=== PATIENT | male | born 1995 | race Caucasian/White ===

== ENCOUNTER 2017-01-13 09:44 | Emergency (ER) | payer OTHER ==
[2017-01-13 09:55] VITALS: TEMP 97.9
--- NOTE | 2017-01-13 10:17 | EDPHY ---
H & P Stated Complaint: right pectoral pain, nausea 2 days, hx chest pain Time Seen by Provider: 01/13/17 10:05 HPI/ROS: CHIEF COMPLAINT: Worsening chronic chest pain HISTORY OF PRESENT ILLNESS: The patient has a 3 month history of right-sided pectoral pain. The patient has seen a few providers for evaluation of this condition. He has been diagnosed with costochondritis. He reportedly has been on an anti-inflammatory for the past month. The patient states over the past several days his symptoms have worsened. He describes a burning sensation underneath his right pectoral area which is worsened with hyperinflation and abduction of his right humerus. The patient denies any asymmetric calf pain or swelling. He denies any complaints of abdominal pain, vomiting diarrhea. The patient denies any history of fever cough or congestion. The patient denies additional acute complaints. REVIEW OF SYSTEMS: A comprehensive 10 point review of systems is otherwise negative aside from elements mentioned in the history of present illness. Source: Patient Exam Limitations: No limitations - Personal History Current Tetanus/Diphtheria Vaccine: Unsure Current Tetanus Diphtheria and Acellular Pertussis (TDAP): Unsure - Medical/Surgical History Hx Asthma: No Hx Chronic Respiratory Disease: No Hx Diabetes: No Hx Cardiac Disease: No Hx Renal Disease: No Hx Cirrhosis: No Hx Alcoholism: No Hx HIV/AIDS: No Hx Splenectomy or Spleen Trauma: No Other PMH: sinus infections, axiety and panic disorder - Social History Smoking Status: Never smoked - Physical Exam Exam: General Appearance: Alert, no distress Eyes: Pupils equal and round no pallor or injection ENT, Mouth: Mucous membranes moist Respiratory: There are no retractions, lungs are clear to auscultation Cardiovascular: Regular rate and rhythm Gastrointestinal: Abdomen is soft and nontender, no masses, bowel sounds normal Neurological: A&O, normal motor function, normal sensory exam, normal cranial nerves Skin: Warm and dry, no rashes, specifically no evidence of zoster Musculoskeletal: Neck is supple nontender Extremities: symmetrical, full range of motion Constitutional: Initial Vital Signs Temperature (C) 36.6 C 01/13/17 09:52 Heart Rate 79 01/13/17 09:52 Respiratory Rate 18 01/13/17 09:52 Blood Pressure 138/73 H 01/13/17 09:52 O2 Sat (%) 100 01/13/17 09:52 O2 Delivery Mode Room Air Allergies/Adverse Reactions: No Known Allergies Allergy (Verified 01/13/17 09:51) Home Medications: Medication Instructions Recorded NK [No Known Home Meds] 01/13/17 Medical Decision Making - Diagnostics EKG Interpretation: EKG: Complete interpretation has been separately recorded in the [email or web address] archive. Summary impression: Sinus, rate 74, no ST segment elevation or depression Imaging Results: Imaging Impressions Chest X-Ray 01/13/17 10:18 Impression: Normal chest. Chest/Thorax CTA 01/13/17 11:41 Impression: Negative CT examination of the chest for acute pulmonary thromboembolic disease. Results called to Dr. Angus Anderson at 12:30 PM at the time of the interpretation. ED Course/Re-evaluation: The patient presents to the ED with an acute exacerbation of some chronic right- sided chest pain. Patient is noted to be hemodynamically stable. He is in no acute distress. His EKG demonstrates no evidence of ischemia or arrhythmia. The patient's chest x-ray demonstrates no evidence of a pneumothorax. The patient's D-dimer is negative which I feel adequately excludes pulmonary embolism. The patient has been struggling with symptoms of intermittent right- sided chest pain for the past month. The patient's chest x-ray demonstrates no evidence of acute disease. The patient's D-dimer was negative. Given the ongoing unexplained symptoms, a CT scan with contrast was performed which demonstrates no evidence of dissection, a thoracic mass, occult pneumothorax or other acute explanation for chest pain. At this point time while the etiology of his symptoms are uncertain I feel we have excluded serious causes of chest pain. The patient will be encouraged to continue to work with his primary care provider for management of his symptoms. At this point time I am recommending the patient continue nonsteroidal anti- inflammatories only. The patient was re-evaluated by myself at 12:30 p.m.. His vital signs remained stable. He is in no acute distress. The patient will be discharged with customary aftercare instructions and return precautions. Differential Diagnosis: Differential diagnosis considered includes pneumothorax, rib fracture, pericarditis, myocarditis, pneumonia, pulmonary embolism - Data Points Laboratory Results: Laboratory Results 01/13/17 10:15 01/13/17 10:15 01/13/17 01/13/17 01/13/17 10:15 10:15 10:15 WBC 5.48 10^3/uL 10^3/uL (3.80-9.50) RBC 5.77 10^6/uL 10^6/uL (4.40-6.38) Hgb 16.9 g/dL g/dL (13.7-17.5) Hct 47.3 % % (40.0-51.0) MCV 82.0 fL fL (81.5-99.8) MCH 29.3 pg pg (27.9-34.1) MCHC 35.7 g/dL g/dL (32.4-36.7) RDW 12.8 % % (11.5-15.2) Plt Count 173 10^3/uL 10^3/uL (150-400) MPV 10.7 fL fL (8.7-11.7) Neut % (Auto) 51.9 % % (39.3-74.2) Lymph % (Auto) 36.3 % % (15.0-45.0) [place] % (Auto) 9.5 % % (4.5-13.0) Eos % (Auto) 1.6 % % (0.6-7.6) Baso % (Auto) 0.5 % % (0.3-1.7) Nucleat RBC Rel Count 0.0 % % (0.0-0.2) Absolute Neuts (auto) 2.84 10^3/uL 10^3/uL (1.70-6.50) Absolute Lymphs (auto) 1.99 10^3/uL 10^3/uL (1.00-3.00) Absolute Monos (auto) 0.52 10^3/uL 10^3/uL (0.30-0.80) Absolute Eos (auto) 0.09 10^3/uL 10^3/uL (0.03-0.40) Absolute Basos (auto) 0.03 10^3/uL 10^3/uL (0.02-0.10) Absolute Nucleated RBC 0.00 10^3/uL 10^3/uL (0-0.01) Immature Gran % 0.2 % % (0.0-1.1) Immature Gran # 0.01 10^3/uL 10^3/uL (0.00-0.10) D-Dimer < 0.27 ug/mLFEU ug/mLFEU (0.00-0.50) Sodium 142 mEq/L mEq/L (134-144) Potassium 4.1 mEq/L mEq/L (3.5-5.2) Chloride 102 mEq/L mEq/L (97-110) Carbon Dioxide 24 mEq/l mEq/l (22-31) Anion Gap 16 mEq/L mEq/L (8-16) BUN 17 mg/dL mg/dL (7-23) Creatinine 1.0 mg/dL mg/dL (0.7-1.3) Estimated GFR > 60 Glucose 81 mg/dL mg/dL (70-100) Calcium 10.1 mg/dL mg/dL (8.5-10.4) Troponin I < 0.012 ng/mL ng/mL (0.000-0.034) Departure - Departure Disposition: [facility] Clinical Impression: Chest pain Condition: Good Instructions: Chest Pain (ED) Additional Instructions: 1. I recommend continuing anti-inflammatories as needed for chest pain. 2. The workup in the emergency department today is unrevealing for evidence of a blood clot, mass, cardiac condition or infection that would be an explanation for your pain. 3. Please continue to work with your primary care provider as needed. Referrals: Francis Mercedes MD [Primary Care Provider] - As per Instructions
--- NOTE | 2017-01-13 10:18 | CPEKG ---
Heart Rate: 74 RR Interval: 811 P-R Interval: 144 QRSD Interval: 96 QT Interval: 372 QTC Interval: 413 P [place]: 53 QRS [place]: 80 T Wave [place]: 43 EKG Severity - OTHERWISE NORMAL ECG - EKG Impression: SINUS ARRHYTHMIA, RATE 60-87 Electronically Signed By: Zack Jimenez 13-Jan-2017 10:32:18
--- NOTE | 2017-01-13 10:18 | CPEKG ---
Heart Rate: 74 RR Interval: 811 P-R Interval: 144 QRSD Interval: 96 QT Interval: 372 QTC Interval: 413 P [place]: 53 QRS [place]: 80 T Wave [place]: 43 EKG Severity - OTHERWISE NORMAL ECG - EKG Impression: SINUS ARRHYTHMIA, RATE 60-87 Electronically Signed By: Zack Jimenez 13-Jan-2017 10:32:18
[2017-01-13 10:24] LABS: PLATELET COUNT 173 10^3/uL (150-400)
[2017-01-13] MEDS ORDERED: IOPAMIDOL (ISOVUE 370) 100 ML BTL IV ONE (11:59)
[2017-01-13 12:09] VITALS: RESP 16
[2017-01-13 13:09] VITALS: BP 114/58; PULSE 66; O2SAT 97
== END 2017-01-13 13:08 | disposition home or self-care (01) ==
DX: R07.9 Chest pain, unspecified (principal)
CPT/HCPCS: Q9967